=== PATIENT | male | born 1980 | race African-American/Black ===

== ENCOUNTER → 2019-04-26 | Outpatient (CLI) | payer OTHER ==
--- NOTE | 2019-04-26 13:16 | RADIOLOGY REPORT (SQ) ---
EXAM DESCRIPTION: KNEE RIGHT 4 VIEWS COMPLETED DATE/TIME: 04/26/2019 11:56 am REASON FOR STUDY: RT SIDED LOW BACK PAIN;NARGIS KNEE PAIN;NARGIS ANKLE PAIN M54.5 LOW BACK PAIN M25.572 PAIN IN LEFT ANKLE AND JOINTS OF LEFT FOOT M25.561 PAIN IN RIGHT KNEE COMPARISON: None. NUMBER OF VIEWS: Four views. TECHNIQUE: AP, lateral, and both oblique radiographic images acquired of the right knee. LIMITATIONS: None. FINDINGS: MINERALIZATION: Normal. BONES: No acute fracture or dislocation. No worrisome bone lesions. JOINT: No effusion. SOFT TISSUES: No soft tissue swelling. No radio-opaque foreign body. OTHER: No other significant finding. IMPRESSION: NEGATIVE STUDY OF THE RIGHT KNEE. NO RADIOGRAPHIC EVIDENCE OF ACUTE INJURY. TECHNICAL DOCUMENTATION: JOB ID: [id number] [employer]- All Rights Reserved Reading location - IP/workstation name: [email or web address]
--- NOTE | 2019-04-26 13:32 | RADIOLOGY REPORT (SQ) ---
EXAM DESCRIPTION: LUMBAR SPINE COMPLETE COMPLETED DATE/TIME: 04/26/2019 11:54 am REASON FOR STUDY: RT SIDED LOW BACK PAIN;NARGIS KNEE PAIN;NARGIS ANKLE PAIN M54.5 LOW BACK PAIN M25.572 PAIN IN LEFT ANKLE AND JOINTS OF LEFT FOOT M25.561 PAIN IN RIGHT KNEE COMPARISON: None. NUMBER OF VIEWS: Five views including obliques. TECHNIQUE: AP, lateral, oblique, and sacral radiographic images acquired of the lumbar spine. LIMITATIONS: None. FINDINGS: MINERALIZATION: Normal. SEGMENTATION: Normal. No transitional anatomy. ALIGNMENT: Normal. VERTEBRAE: Maintained height. No fracture or worrisome bone lesion. DISCS: Mild disc space loss of height at L5-S1 POSTERIOR ELEMENTS: Pedicles and facets are intact. No pars defect or posterior arch defects. Very mild bilateral facet arthropathy at L3-4, L4-5, and L5-S1 HARDWARE: None in the spine. PARASPINAL SOFT TISSUES: Unremarkable PELVIS: No SI joint sclerosis OTHER: No other significant finding. IMPRESSION: Mild degenerative changes lower lumbar spine TECHNICAL DOCUMENTATION: JOB ID: [id number] [employer]- All Rights Reserved Reading location - IP/workstation name: [email or web address]
--- NOTE | 2019-04-26 13:33 | RADIOLOGY REPORT (SQ) ---
EXAM DESCRIPTION: ANKLE BILATERAL 3 VIEWS MIN COMPLETED DATE/TIME: 04/26/2019 11:55 am REASON FOR STUDY: RT SIDED LOW BACK PAIN;NARGIS KNEE PAIN;NARGIS ANKLE PAIN M54.5 LOW BACK PAIN M25.572 PAIN IN LEFT ANKLE AND JOINTS OF LEFT FOOT M25.561 PAIN IN RIGHT KNEE COMPARISON: None. NUMBER OF VIEWS: Three views. TECHNIQUE: AP, lateral, and oblique radiographic images acquired of the right and left ankle. LIMITATIONS: None. FINDINGS: RIGHT: MINERALIZATION: Normal. BONES: No acute fracture or dislocation. No worrisome bone lesions. JOINTS: No effusions. SOFT TISSUES: No soft tissue swelling. No foreign body. OTHER: No other significant finding. LEFT: MINERALIZATION: Normal. BONES: No acute fracture or dislocation. No worrisome bone lesions. JOINTS: No effusions. SOFT TISSUES: There is calcification over the left Achilles tendon from healed tendinopathy. OTHER: No other significant finding. IMPRESSION: Unremarkable right ankle films. On the left side, there is calcification along the Achilles tendon from old healed tendinopathy TECHNICAL DOCUMENTATION: JOB ID: [id number] [employer]- All Rights Reserved Reading location - IP/workstation name: [email or web address]
--- NOTE | 2019-04-26 13:36 | RADIOLOGY REPORT (SQ) ---
EXAM DESCRIPTION: KNEE LEFT 4 VIEWS COMPLETED DATE/TIME: 04/26/2019 11:55 am REASON FOR STUDY: RT SIDED LOW BACK PAIN;NARGIS KNEE PAIN;NARGIS ANKLE PAIN M54.5 LOW BACK PAIN M25.572 PAIN IN LEFT ANKLE AND JOINTS OF LEFT FOOT M25.561 PAIN IN RIGHT KNEE COMPARISON: None. NUMBER OF VIEWS: Four views. TECHNIQUE: AP, lateral, and both oblique radiographic images acquired of the left knee. LIMITATIONS: None. FINDINGS: MINERALIZATION: Normal. BONES: No acute fracture or dislocation. No worrisome bone lesions. JOINT: No effusion. SOFT TISSUES: No soft tissue swelling. No radio-opaque foreign body. OTHER: No other significant finding. IMPRESSION: NEGATIVE STUDY OF THE LEFT KNEE. NO RADIOGRAPHIC EVIDENCE OF ACUTE INJURY. TECHNICAL DOCUMENTATION: JOB ID: [id number] [employer]- All Rights Reserved Reading location - IP/workstation name: [email or web address]
== END ==
LOC: OD 10:46
PROVIDERS: ATTEND Family Medicine
DX: M54.5 Low back pain (principal); M25.571 Pain in right ankle and joints of right foot; M25.572 Pain in left ankle and joints of left foot; M25.561 Pain in right knee; M25.562 Pain in left knee
CPT/HCPCS: 72110

== ENCOUNTER → 2019-08-12 | Outpatient (CLI) | payer OTHER | LOC: RAD 06:45 | PROVIDERS: ATTEND Internal Medicine | DX: R07.9 Chest pain, unspecified (principal) | CPT/HCPCS: 93017; 78452; A9500; Q9969 ==